=== PATIENT | female | born 1985 | race Caucasian/White ===

== ENCOUNTER → 2021-05-15 11:11 | Outpatient (CLI) | payer OTHER, SELFPAY ==
[2021-05-15 11:36] LABS: Absolute Lymphocyte Count 1.25 X10^3/uL (0.83-4.51); Absolute Neutrophil Count 8.4 X10^3/uL (2.0-7.7); Basophil# 0.06 X10^3/uL; Basophil% 0.6 % (0-1); Eosinophil# 0.07 X10^3/uL; Eosinophils% 0.7 % (0-5); Hematocrit 39.4 % (37-47); Hemoglobin 13.4 g/dL (12.0-15.0); Lymphocyte # 1.25 X10^3/ul (0.83-4.51); Lymphocyte % 11.9 % (19-41); Mean Corpuscular Hgb 30.5 pg (27.0-32.0); Mean Corpuscular Volume 89.5 fL (81-99); Mean Platelet Vol. 8.7 fl (6.2-12.0); Monocyte# 0.69 X10^3/uL; Monocyte% 6.5 % (0-10); NRBC Flagged by Analyzer 0 % (0-5); Neutrophil # 8.44 X10^3/uL (2.7-7.7); Platelet Count 324 K/mm3 (150-450); RBC Distribution Width CV 13.7 % (11.6-14.6); RBC Distribution Width SD 45.1 fl (35.1-43.9); White Blood Count 10.5 K/mm3 (4.4-11.0)
[2021-05-15 12:04] LABS: Rubella IgG Reactive (Nonreactive)
[2021-05-15 12:24] LABS: NATERA MAILED SPECIMEN
[2021-05-18 14:25] LABS: HPV APTIMA, High Risk Negative (Negative)
== END ==
PROVIDERS: Referring Provider Obstetrics & Gynecology; Visit Provider Obstetrics & Gynecology
DX: O28.5 Abnormal chromosomal and genetic finding on antenatal screening of mother (principal); D18.1 Lymphangioma, any site; Z3A.00 Weeks of gestation of pregnancy not specified
CPT/HCPCS: 36415; 85025; 86762; 86850; 86900; 86901; 87624; 88175; G0145

== ENCOUNTER 2021-06-03 07:56 | Day surgery (SDC) | payer SELFPAY, OTHER ==
--- NOTE | 2021-06-02 | POC_PTH ---
PATIENT: JORJE MONSALVE [place] [facility] [place][id number] AGE/SX: 35/F ROOM: RE06/03/[address]: Dr. Amina Tello MD : 1985 BED: DIS: 06/03/2021 SPEC #: [id number] RECD: 06/05/21 11:55 STATUS: SELWYN DEON #: [id number] RIGO: 06/02/21 00:[address]: Amina Tello DEPT: SURGICAL PATHOLOGY RECD BY: Sebastian Cool ENTERED: 06/05/21 12:43 SP TYPE: PROD CONC OTHR DR: No Primary Care Phys Tissues: A - Fallopian tube B - Product of conception, NOS Procedures: Surgery Specimen Level II Surgery Specimen Level IV HEADER OPERATION: Laparoscopic bilateral salpingectomy, suction D & C PRE-OP DIAGNOSIS: Incomplete , sterilization TISSUE SUBMITTED: A ? Bilateral fallopian tubes, B ? Products of conception MICROSCOPIC DIAGNOSIS A. Bilateral fallopian tubes, salpingectomy: Bilateral fallopian tubes, no pathologic diagnosis. B. Products of conception: Decidua, gestational endometrium, immature chorionic villi and tissue (products of conception). BEATA:will 06/06/2021 MICROSCOPIC DESCRIPTION Slides are reviewed. GROSS DESCRIPTION A - Received in fixative is one container labeled with the patient's name and designated bilateral fallopian tubes. The specimen consists of bilateral fallopian tubes including fimbrial ends measuring 7.5 cm in length and 0.5 cm in diameter and 7 cm in length and 0.5 cm in diameter. The fallopian tubes are not identified as right or left. Sections reveal unremarkable cut surfaces. One of the fallopian tubes also show a paratubal cyst measuring 0.5 cm in greatest dimension. Clinical Nurse Specialist sections are submitted in two cassettes as follows: 1 ? one fallopian tube, 2 ? second fallopian tube and paratubal cyst. B - Received in fixative is one container labeled with the patient's name and designated products of conception. The specimen consists of multiple fragments of hemorrhagic soft tissue mixed with tissue and placental tissue that in aggregate measure 10 x 9 x 3 cm. Clinical Nurse Specialist tissue is submitted in three cassettes. Cassette 3 contains the tissue. / BEATA:will 06/05/2021 TC:5 CPT: 27453, 98434 x2
[2021-06-03 08:40] VITALS: RESP 16
[2021-06-03] MEDS: Lactated Ringers 1,000 ML 999 ML IV (08:40)
[2021-06-03] MEDS: Doxycycline 100 MG CAPSULE PO (08:51)
[2021-06-03 08:58] LABS: Absolute Lymphocyte Count 1.44 X10^3/uL (0.83-4.51); Absolute Neutrophil Count 5.1 X10^3/uL (2.0-7.7); Basophil# 0.07 X10^3/uL; Eosinophil# 0.11 X10^3/uL; Eosinophils% 1.5 % (0-5); Hematocrit 43.1 % (37-47); Hemoglobin 14.1 g/dL (12.0-15.0); Lymphocyte # 1.44 X10^3/ul (0.83-4.51); Lymphocyte % 20.1 % (19-41); Mean Corp Hgb Conc 32.7 g/dL (32-36); Mean Corpuscular Hgb 29.6 pg (27.0-32.0); Mean Corpuscular Volume 90.4 fL (81-99); Mean Platelet Vol. 8.8 fl (6.2-12.0); Monocyte# 0.45 X10^3/uL; Monocyte% 6.3 % (0-10); NRBC Flagged by Analyzer 0 % (0-5); Neutrophil # 5.08 X10^3/uL (2.7-7.7); Neutrophil % 70.7 % (47-70); Platelet Count 324 K/mm3 (150-450); RBC Distribution Width CV 13.3 % (11.6-14.6); RBC Distribution Width SD 44.5 fl (35.1-43.9); Red Blood Count 4.77 M/mm3 (4.2-5.4); White Blood Count 7.2 K/mm3 (4.4-11.0)
[2021-06-03] MEDS: Lactated Ringers 1,000 ML 100 ML IV ×2 (09:55→11:00)
--- NOTE | 2021-06-03 10:19 | HP.PCM_ITS ---
History and Physical Date of Admission: 06/03/21 Intake Visit Reasons: 2 WEEK F/U Design Lead Required: No Is patient in pain?: No Allergies No Known Allergies Allergy (Verified 06/02/21 11:05) Medications NK 05/03/21 [History Confirmed 06/02/21] Last Menstral Period: 02/07/21 Zika: Zika virus screening: Negative : No PFSH PFSH Family History Grandfather Cancer Social History household members: family housing: house number of children: 5 Smoking Status: Never smoker second hand exposure: No alcohol intake: never substance use type: does not use seatbelt use: always do you feel safe at home: Yes additional social history: - Elan Pregancy History 7 Elective abortions Hx Para 5 Spontaneous abortions 1 Hx # Term Pregnancies Ectopic pregnancies Hx # Pregnancies Multiple births # of living children 5 Past Pregnancies Del. Date Name GA/Weeks Outcome Route Bth Weight Gen Labor Lgth Anesthesia Del Locatn Provider FOB 03/09/08 Felicia 38 live - full term 6lbs 12oz Male 5 hours none [facility] Dr. Esperanza Ansari 08/03/09 Carson 39 live - full term 6lbs 10oz Female 9 hours none Home Tonja Ansari 07/06/11 Mari 39 live - full term 8lbs 7oz Female 19 hours none Home Tonja Ansari 07/19/15 Aria 40 live - full term 7lbs 7.5oz Female 6 hours none Home Tonja Ansari 03/25/18 Kiko 38 live - full term 7lbs 9oz Male 3 hours [facility] [place] [place] Nettie Ansari Delivery Date: 03/09/08 no complications Mari Burton Delivery Date: 08/03/09 no complications Mari Burton Delivery Date: 07/06/11 no complications- longer labor due to position of baby Mari Burton Delivery Date: 07/19/15 no complications Mari Burton Delivery Date: 03/25/18 placenta previa that resolved by delivery Mari Burton HPI 2 WEEK F/U Details: JORJE MONSALVE is a 35 year old who presents for early bleeding. she had an abnormal ultrasound on her last visit with cystic hygroma present. Starting a few days ago she began bleeding just intermittent not heavy. She also has cramping. She feels like she has probably lost the . Upon ultrasound there is no heart tones and crown-rump length is consistent with 12 weeks 3 days. She denies any fevers. symptoms are resolving. OB Visit ALEJANDRINA Calculator Estimated Delivery Date Method Current WG Current Estimate 11/14/21 LMP (Certain) 16w 4d Expected Delivery Route/Plan Labor Preferences- CB/BF classes: [] labor support person: [] labor intervention preferences: [] pain management options preferred: [] cut cord/dad catch: [] : [] PP control planned: [] discussed possible routes of delivery and associated risks: [] special requests: [] Specific Issue/Plans Covid status: counseled regarding risk of covid in vs vaccination and declined vaccination Flu vaccine: declined Tdap vaccine: [] Rhogam: [] LARC form signed: [] Problem list reviewed and updated with the most current plan of care details and appropriate orders placed. Relevant counseling for the gestational age provided. Continue routine care and follow up unless otherwise noted in visit notes/problem list details Initial Weight: 140 lb Date EGA Weight BP Urine Prot Glucose FHR FuHt Pres Dilation Effaced St Visit Note 05/15/21 13w 6d 140 lb (+0 oz) 116/70 180 SM- CRL cons with LMP SM- CRL borderline cons with LMP, cystic hygroma seen measuring 10 mm extending to bottom of CRL. 06/02/21 16w 3d 138 lb (-2 lb) 150/90 SM- CRL measuring 12w2d, and no fht or color doppler seen. ACOG First Trimester First Trimester: Desire for , Alcohol, Tobacco Cessation, Illicit/Recreational Drug/Substance Use, Intimate Partner Violence, Barriers to care, Unstable Housing, Communication Barriers, Environmental/Work Hazards, Anticipated Course of Care, Toxoplasmosis Precations, Use of Any medications, Sexual activity, Exercise, Dental Care, Sauna/Hot tub use, Seat Belt use, Childbirth classes/Hospital facilities, , Travel, Indications for Ultrasound and Screening for Aneuploidy Diagnostics Diagnostics Diagnostics: Blood Type O NEGATIVE Antibody Screen NEGATIVE Rubella IgG Antibody Reactive (Nonreactive) Hgb 14.1 g/dL (12.0-15.0) Hct 43.1 % (37-47) Details: HIV: Urine Culture: Sequential Screen: NIPT Screen: ROS Const Reports as per HPI and Denies fever(s) ENT Reports system reviewed and no additional complaints, except as documented Card Reports system reviewed and no additional complaints, except as documented Resp Reports system reviewed and no additional complaints, except as documented GI Reports as per HPI Reports as per HPI and Reports abnormal vaginal bleeding Musc Reports system reviewed and no additional complaints, except as documented Skin/Breast Reports system reviewed and no additional complaints, except as documented Neuro Yes system reviewed and no additional complaints, except as documented Endo Reports system reviewed and no additional complaints, except as documented Exam Const General: healthy appearing, comfortable and no acute distress HENMT Head: normal to inspection and normocephalic Neck Neck: no lymphadenopathy noted Thyroid: thyroid normal Chest Chest palpation & inspection: normal inspection of the chest Resp Effort & Inspection: normal respiratory effort Cardio Rate: regular rate Rhythm: regular rhythm GI Inspection: normal to inspection Palpation: soft and nontender External Female Exam: normal external appearance Speculum Exam - Vagina: normal appearance of the vagina and vaginal bleeding Bimanual Exam- Vagina & Uterus: uterine shape normal and non-tender OB/External & Speculum: vaginal bleeding Speculum Exam: vaginal bleeding Skin General: no rashes or lesions noted Neuro General: no focal motor deficits Extrem General: normal to inspection and no pedal edema Psych Appearance: grossly normal Coding Level of Care Code Off vis,est,level 4 Diagnoses Rh negative state in antepartum period O26.899; Z67.91 Cystic hygroma D18.1 Grand multipara Z64.1 Supervision of other normal Z34.80 Z3A.16 Weeks of gestation: 16 weeks Sterilization Z30.2 Incomplete O03.4 Assessment and Plan Assessment and Plan (1) Rh negative state in antepartum period: Status: Acute (2) Cystic hygroma: Status: Acute (3) Grand multipara: Status: Acute Comment: 1 previous homebirth, 3 at home, 1 at birthing center. (4) Supervision of other normal : Status: Acute Comment: ALEJANDRINA: 11/14/21 PC: Olivia Duarte Emily, Rita, Eric Spouse: Elan (5) : Status: Acute Qualifiers: Weeks of gestation: 16 weeks Qualified Code(s): Z3A.16 - 16 weeks gestation of Comment: ulises NIPT due to cystic hygroma seen Plan - Dr. Amina Tello MD: After discussing the patient's diagnosis and treatment plan options, patient wishes to proceed with surgical management. I have discussed with the patient the risks, benefits, and alternatives of the procedure which include but are not limited to risks of anesthesia, bleeding, infection, possible damage to bowel, bladder, or surrounding vasculature which could lead to additional surgery to evaluate any complications. Patient agrees to procedure and wishes to proceed. ACOG/uptodate references given for additional information regarding procedure. (6) Sterilization: Status: Acute Comment: Desires sterilization at the time of the procedure. Plan laparoscopic bilateral salpingectomy (7) Incomplete : Status: Acute Comment: Proceed with suction D&C] UPDATE- I have seen the patient and performed any clinically relevant updates to the history and physical exam. Amina Tello MD Assessment & Plan Assessment/Plan (1) Incomplete : (2) Sterilization: (3) Rh negative state in antepartum period: (4) Cystic hygroma: (5) Grand multipara:
--- NOTE | 2021-06-03 10:22 | OP.PCM_ITS ---
Problems Associated Problem List Diagnoses (1) Incomplete : (2) Sterilization: (3) Rh negative state in antepartum period: (4) Cystic hygroma: Report of Operation Date of Procedure: 06/03/21 Pre-Operative Diagnosis: see problem list Post-Operative Diagnosis: same Surgery/Procedure Performed:: laparoscopic bilateral salpingectomy and suction d and c Description of Surgical Findings:: nl uterus tubes ovaries Type of Anesthesia: General and Local Special Medications: cytotec pitocin Specimen's removed: tubes and POC Drains: none Estimated Blood Loss (mL): 100 Fluids Replaced: crystalloid Description of Procedure: Patient was taken in the operating room and was placed under general anesthesia was prepped and draped in normal sterile fashion in the dorsal lithotomy position. Bladder was drained of clear urine and SCDs were on preoperatively. the cervix was grasped and the uterus sounded to 12. Cervix was progressively dilated to allow passage of a 12 suction curette. Progressive passes were made removing the retained products of conception without complication. Sharp curettage confirmed complete removal of the retained products. All instruments were removed from the vagina and excellent hemostasis was noted and the patient was taken to recovery in stable condition. Attention was then paid to the abdominal portion of the procedure and the umbilicus was el evated with towel clamps and injected with Marcaine and after a 5 mm incision was made and the Veress needle was entered into the abdomen confirmed to be intra-abdominal with a low opening pressure of less than 5 mmHg. Abdomen was insufflated with CO2 gas and a 5 mm optical trocar was placed under direct visualization. A 5 mm port suprapubically was placed under direct visualization. Uterus was well visualized and bilateral fallopian tubes identified and bilateral tubes were elevated and transecting across the mesosalpinx and the attachment to the uterine corpus bilaterally the tubes were removed without complication. Excellent hemostasis was noted. Fallopian tubes were removed through the lower port site without complication. Liver and upper abdomen were visualized notably within normal limits and no other gross abnormalities were seen in the abdomen. All instruments removed from the abdomen after gas was desufflated. Port sites were closed with 3-0 Monocryl Steri's and op sites were applied. All instruments removed from the vagina and patient was awoken and taken recovery in stable condition. Grafts/Implants Used: none Complications none Admit VTE Documentation VTE Present on Admission: No VTE Mechan Device Prophylaxis: SCD's Multi Select Codes Urinary/Genital Urinary/Genital CPT Codes: 62322 Laproscopic BS/[place] [address] Surg Trtmt missed Ab 1TM
--- NOTE | 2021-06-03 10:25 | DCINST_ITS ---
Discharge Instructions Diet Discharge Diet: No restrictions Activity Discharge Activity: Return to Normal Activity, May Not Drive (for 2 weeks or while taking narcotic pain meds.), May Shower and May Take a Tub Bath (in 7 days) May resume sexual activity in: 1 week Weight Bearing Status: Full weight bearing Dressing / Incision Call your doctor if your incision/area has: Continuous Slow Oozing, Sudden Increased Bleeding, Increased Pain/ Swelling, Increased Redness and Foul Smelling Discharge Call your doctor if you observe: Fever of 101 or Higher, Using more than 1 pad per hour, Shortness of breath, Chest pain and Uncontrolled pain Suture Line Care: Avoid Pulling/Pushing and Avoid Pinching/Bending Remove Dressing in: 1 week (if present) Cleanse incision/area with: Soap & Water and Keep Dressing Clean & Dry Follow Up Care When: Call to make an appointment with your doctor for a fu/incision check in 1- 2 weeks. Test Results: Test results from this visit will be discussed in further detail at your follow-up appointment, if applicable. Discharge Plan Admission Primary Reason for Your Visit: d and c and sterilization Attending Provider: Amina Tello Primary Care Provider: Care Physician,Sandra Primary Discharge Orders/Prescriptions Prescriptions: New oxycodone-acetaminophen [Endocet] 5-325 mg tablet 1 tab PO Q4H PRN (Reason: pain) 7 Days Qty: 20 RF: 0 naproxen 250 MG tablet 250 - 500 mg PO Q8H PRN PRN (Reason: MILD PAIN) Qty: 30 RF: 1 Referrals / Follow Up: Care Physician,No Primary [Primary Care Provider] - Disposition Disposition (needs filled in before D/C Order can be placed): Home, Self Care
[2021-06-03] MEDS: Bupivacaine 0.25% 30 ML Vial (10:55)
[2021-06-03] MEDS: Oxytocin 10 UNITS/ML Vial (11:15)
[2021-06-03] MEDS: miSOPROStol 200 MCG Tablet 1000 MCG RC (11:15)
[2021-06-03 11:33] VITALS: BP 102/80; BP 115/88; PULSE 67; RESP 18; TEMP 36.1; O2SAT 99
[2021-06-03 11:45] VITALS: BP 102/80; BP 132/88; PULSE 57; RESP 18; O2SAT 100
[2021-06-03 11:58] VITALS: BP 102/80; BP 137/85; PULSE 66; RESP 18; TEMP 35.8; O2SAT 100
[2021-06-03] MEDS: HYDROcodone Bitartrate/Apap 5/325 Tablet PO (12:28)
[2021-06-03 13:00] VITALS: BP 102/80; BP 124/93; PULSE 83; RESP 18; TEMP 36; O2SAT 100
== END 2021-06-03 23:59 | disposition home or self-care (01) ==
PROVIDERS: Referring Provider Obstetrics & Gynecology; Visit Provider Obstetrics & Gynecology
PROC: (CPT 58661; principal; 2021-06-03 10:30)
DX: O03.4 Incomplete spontaneous abortion without complication (principal); O99.891 Other specified diseases and conditions complicating pregnancy; D18.1 Lymphangioma, any site; Z3A.12 12 weeks gestation of pregnancy; Z30.2 Encounter for sterilization
CPT/HCPCS: 58661; 59820; 00840; 85025; 86850; 86900; 86901; 87426; 88302; 88305; A4216; J2405